=== PATIENT | male | born 1990 | race Caucasian/White ===

== ENCOUNTER 2021-01-19 12:26 | Emergency (ER) | payer MEDICAID, SELFPAY ==
[2021-01-19 12:38] VITALS: BP 160/80; PULSE 89; RESP 16; TEMP 36.7; O2SAT 100; BMI 24.3
[2021-01-19 14:08] LABS: Amphetamine Screen Urine Not Detected (Not Detect); Barbiturates, Urine Not Detected (Not Detect); Benzodiazepines Screen Urine Not Detected (Not Detect); Cannabinoid Screen Urine Not Detected (Not Detect); Cocaine Screen Urine Not Detected (Not Detect); Opiate Screen Urine Not Detected (Not Detect); Phencyclidine Screen Urine Not Detected (Not Detect)
--- NOTE | 2021-01-19 14:34 | ED_ITS ---
HPI - Medical Clearance General Chief complaint: Medical Clearance Stated complaint: med clearance Time Seen by Provider: 01/19/21 13:05 Source: patient Mode of arrival: ambulatory Limitations: no limitations History of Present Illness HPI Narrative: Going from a [facility] [place] [facility], [place] house they require a tox screen before entering he is here to get a U tox as per their require for admission to their facility. He offers no complaints. MD complaint: medical clearance requested Compliant with Home Medications: Yes Associated Symptoms: denies other symptoms Treatments Prior to Arrival: none Related Information Allergies Allergy/AdvReac Type Severity Reaction Status Date / Time No Known Allergies Allergy Verified 01/19/21 13:07 Review of Systems Review of Systems: Constitutional: No Weight loss, No Fever, No Chills, No Night Sweats, No Fatigue, No Malaise ENT/Mouth: No Hearing loss, No Ear Pain, No Nasal Congestion, No Sinus Pain, No Hoarseness, No sore throat, No Rhinorrhea, No Swallowing Difficulty Eyes: No Eye Pain, No Swelling, No Redness, No Foreign Body, No Discharge, No Vision Changes Cardiovascular: No Chest Pain, No SOB, No Dyspnea on Exertion, No Orthopnea, No Edema, No Palpitations Respiratory: No Cough, No Sputum, No Wheezing, No Dyspnea Gastrointestinal: No Nausea, No Vomiting, No Diarrhea, No Constipation, No ab dominal Pain, No Hematochezia, No Melena Genitourinary: No Dysuria, No Urinary Frequency, No Hematuria, No Urinary Incontinence, No Urgency, No Flank Pain, No Urinary Flow Changes, No Hesitancy Musculoskeletal: No joint pain, No Myalgias, No Joint Swelling Skin: No Skin Lesions, No rash Neuro: No Weakness, No Numbness, No Paresthesias, No Loss of Consciousness, No Dizziness, No Headache Psych: No Anxiety/Panic, No Depression, No SI/HI/AH/VH, No Social Issues Heme/Lymph: No Bruising, No Bleeding,No Lymphadenopathy Endocrine: No Polyuria, No Polydipsia, No Temperature Intolerance Yes all other systems are reviewed and are negative [facility] Social History Social History Advance Directives: No Advance Directives Information Provided: No Physical Exam Vital Signs: Vital Signs: Last Vital Signs Temp 98.0 F 01/19/21 12:38 Pulse 89 01/19/21 12:38 Resp 16 01/19/21 12:38 BP 160/80 H 01/19/21 12:38 Pulse Ox 100 01/19/21 12:38 Body Mass Index 24.3 Reviewed Const: General: cooperative and healthy appearing; No acute distress or intoxicated appearing Nutritional Appearance: average body habitus Orientation/consciousness: patient oriented x3 HENMT: Head: Yes normal to inspection Ears: hearing grossly normal bilaterally Eyes: General: appearance normal, both eyes and all related structures Visual Lim: normal visual lim by confrontation Neck: Neck: Yes normal visual inspection, No positive Brudzinski's sign, No positive Kernig's sign and No tender Thyroid: Thyroid normal Chest: Chest palpation & inspection: normal inspection of the chest Resp: Effort & Inspection: normal respiratory effort Auscultation: clear to auscultation bilaterally Cardio: Jugular venous distension: no JVD Rhythm: regular rhythm Heart sounds: S1 normal heart sound present and S2 normal heart sound present GI: Inspection: Yes normal to inspection Palpation (GI): Soft to palpation Percussion: Yes normal to percussion Auscultation: normal bowel sounds : General: Yes no CVA tenderness Back/Spine/Pelvis: Back: no CVA tenderness Skin: General skin exam: no rashes or lesions noted Neuro: General: patient oriented x3 Extrem: General: Yes normal to inspection Course Course Course Narrative: Going to [facility] for poly sub offers no complaints. Well nontoxic appearing. Hemodynamically stable. Needs U tox per facility policy for new patients to the [facility]. U tox negative given a copy and paperwork sign. MDM - Medical Clearance Lab Data Labs: Lab Results 01/19/21 Range/Units 13:33 Urine Opiates Screen Not Detected (Not Detect) Ur Barbiturates Screen Not Detected (Not Detect) Ur Phencyclidine Scrn Not Detected (Not Detect) Ur Amphetamines Screen Not Detected (Not Detect) U Benzodiazepines Scrn Not Detected (Not Detect) Urine Cocaine Screen Not Detected (Not Detect) U Marijuana (THC) Screen Not Detected (Not Detect) Discharge Plan Discharge Clinical Impression: Encounter for wellness examination in adult Patient Disposition: Home, Self-Care Instructions: Normal Exam (ED) Additional Instructions: Your urine drug screen was negative Her clear to go to the [facility] Return if any concerns or worsening symptoms Thank you and good luck on your recovery Referrals: Physician,None [Primary Care Provider] - 1 week
== END 2021-01-19 14:47 | disposition home or self-care (01) ==
PROVIDERS: Nurse Practitioner Primary Care; Emergency Provider Emergency Medicine
DX: Z02.2 Encounter for examination for admission to residential institution (principal); Z79.899 Other long term (current) drug therapy
CPT/HCPCS: 80307; 99283

== ENCOUNTER 2021-02-05 11:29 | Emergency (ER) | payer MEDICAID, SELFPAY ==
[2021-02-05 11:37] VITALS: BP 123/57; PULSE 59; RESP 18; TEMP 36.4; O2SAT 100; BMI 23.6
--- NOTE | 2021-02-05 12:25 | ED.GENADULT ---
HPI - General Adult General Chief complaint: General Medical Stated complaint: med refill Source: patient Mode of arrival: ambulatory Limitations: no limitations History of Present Illness HPI narrative: Patient presents to ED for medication refill. Patient states he is getting into a program and they will not take him without his meds. Patient states he would not see his primary care physician until Friday because his primary care physician is in vacation. Patient states he does need enough pills of Adderall, clonidine, and gabapentin until Friday so than his PCP to refill the meds. Related Data Previous Rx's Medication Instructions Recorded clonidine HCl 0.1 mg PO BID PRN 3 Days #6 tab 02/05/21 dextroamphetamine-amphetamine 15 mg PO DAILY #3 tab 02/05/21 [Adderall] gabapentin 300 mg PO TID #9 cap 02/05/21 Allergies Allergy/AdvReac Type Severity Reaction Status Date / Time morphine AdvReac Hypotension Verified 02/05/21 11:36 Review of Systems Constitutional: Constitutional: Reports as per HPI and Reports no additional constitutional complaints Eyes: Eyes: Reports as per HPI and Reports no additional eye complaints ENT: Reports system reviewed and no additional complaints, except as documented and Reports as per HPI Cardiovascular: Cardiovascular: Reports as per HPI and Reports no additional cardiovascular complaints Respiratory: Respiratory: Reports as per HPI and Reports no additional respiratory complaints Gastrointestinal: Gastrointestinal: Reports as per HPI and Reports no additional gastrointestinal complaints Genitourinary: Genitourinary: Reports no additional male genitourinary complaints and Reports as per HPI Musculoskeletal: Musculoskeletal: Reports no additional musculoskeletal complaints and Reports as per HPI Neurologic: Reports system reviewed and no additional complaints, except as documented and Reports as per HPI Psychiatric: Psychiatric: Reports no additional psychiatric complaints and Reports as per HPI [facility] Social History Social History Advance Directives: No Advance Directives Information Provided: No Physical Exam Vital Signs: Vital Signs: Last Vital Signs Temp 97.6 F 02/05/21 11:37 Pulse 59 02/05/21 11:37 Resp 18 02/05/21 11:37 BP 123/57 L 02/05/21 11:37 Pulse Ox 100 02/05/21 11:37 Body Mass Index 23.6 Const: General: cooperative, healthy appearing, comfortable, no acute distress, well developed, alert, awake and Physically active Orientation/consciousness: patient oriented x3 HENMT: Head: Yes normal to inspection, Yes No palpable skull fracture present, Yes normocephalic, Yes atraumatic, No abrasion, No Bowman's sign, No contusion, No cranial bruits, No hematoma, No laceration, No occipital foramen tenderness, No palpable skull fracture, No raccoon eyes, No scalp lesion, No scalp tenderness, No Temporal artery tenderness present and No periorbital ecchymosis Eyes: General: appearance normal, both eyes and all related structures Neck: Neck: Yes normal visual inspection, Yes full ROM, Yes no lymphadenopathy, Yes no meningeal signs, Yes trachea midline, Yes supple and No tender Chest: Chest palpation & inspection: normal inspection of the chest and normal palpation of entire chest wall Resp: Effort & Inspection: normal respiratory effort and able to speak in complete sentences Auscultation: clear to auscultation bilaterally Cardio: Jugular venous distension: no JVD Heart sounds: S1 normal heart sound present and S2 normal heart sound present GI: Inspection: Yes normal to inspection Palpation (GI): Soft to palpation, not firm, nontender, no guarding and not rigid : General: No CVA tenderness and Yes no CVA tenderness Back/Spine/Pelvis: Back: no CVA tenderness, No CVA tenderness, No back tenderness and other Skin: General skin exam: no rashes or lesions noted and elasticity normal Neuro: General: patient oriented x3, no meningeal signs and CN's II-XI intact bilaterally Cranial nerves: Yes CN's II-XII intact bilaterally Extrem: General: Yes normal to inspection and Yes full ROM Psych: Appearance: grossly normal, well kempt and not disheveled Course Course Course Narrative: Patient will have Adderall, clonidine and gabapentin refilled. Patient denies any physical complaints. Reevaluation(s) Reevaluation #1: Patient will only be giving enough doses until Friday. Medical Decision Making MDM Narrative Medical decision making narrative: Medication refill Discharge Plan Discharge Clinical Impression: Medication refill Patient Disposition: Home, Self-Care Instructions: Medicine Refill (ED) Additional Instructions: Return to ED immediately for any physical complaints or concerns. Prescriptions: New dextroamphetamine-amphetamine [Adderall] 15 mg tablet 15 mg PO DAILY Qty: 3 RF: 0 clonidine HCl 0.1 mg tablet 0.1 mg PO BID PRN (Reason: psych) 3 Days Qty: 6 RF: 0 gabapentin 300 mg capsule 300 mg PO TID Qty: 9 RF: 0 Interventions: ED Discharge Assessment Last Done: 02/05/21 12:53 Discharge Date/Time: 02/05/21 13:01 Print Language: Croatian
== END 2021-02-05 13:01 | disposition home or self-care (01) ==
PROVIDERS: Emergency Provider Emergency Medicine
DX: Z76.0 Encounter for issue of repeat prescription (principal)
CPT/HCPCS: 99283